=== PATIENT | female | born 1980 | race Two or more races ===

== ENCOUNTER 2021-01-21 18:11 | Emergency (ER) | payer SELFPAY ==
[~2021-01-21] VITALS: Ht 162.6 cm; Wt 72.0 kg
[2021-01-21] MEDS ORDERED: FAMOTIDINE 20 MG/2 ML VIAL IVP ONE (18:45)
[2021-01-21 19:04] LABS: BASO % 1 % (0-3); EOS % 0 % (0-3); HEMATOCRIT 38.6 % (36.0-47.0); HEMOGLOBIN 13.2 g/dL (12.0-15.5); LYMPH # 0.8 x10^3/uL (1.0-4.8); LYMPH % 19 % (24-48); MEAN CORPUSCULAR HEMOGLOBIN 32 pg (25-35); MEAN CORPUSCULAR HGB CONC 34 g/dL (31-37); MEAN CORPUSCULAR VOLUME 92 fL (79-100); MONO # 0.3 x10^3/uL (0.0-1.1); MONO % 7 % (0-9); NEUT # 2.9 x10^3/uL (1.8-7.7); NEUT % 73 % (31-73); PLATELET COUNT 251 x10^3/uL (140-400); RED BLOOD COUNT 4.19 x10^6/uL (3.50-5.40); RED CELL DISTRIBUTION WIDTH 12.7 % (11.5-14.5)
[2021-01-21 19:13] LABS: CALCIUM 8.7 mg/dL (8.5-10.1); CREATININE 0.6 mg/dL (0.6-1.0); GFR 111.3; POTASSIUM 3.5 mmol/L (3.5-5.1)
[2021-01-21 19:18] LABS: ALBUMIN 3.5 g/dL (3.4-5.0); ALBUMIN/GLOBULIN RATIO 0.8 (1.0-1.7); TOTAL BILIRUBIN 0.6 mg/dL (0.2-1.0); TOTAL PROTEIN 7.8 g/dL (6.4-8.2)
--- NOTE | 2021-01-21 19:43 | RAD ---
Exam: Chest one view INDICATION: Epigastric pain, Covid positive TECHNIQUE: Frontal view of the chest Comparisons: None FINDINGS: The cardiomediastinal silhouette and pulmonary vessels are within normal limits. Patchy bibasilar airspace disease. No pleural effusion. IMPRESSION: Patchy bilateral airspace disease. Infectious or inflammatory in etiology. Electronically signed by: Ashlie Wynne MD (01/21/2021 7:41 PM) [facility]
--- NOTE | 2021-01-21 19:44 | EKG ---
[facility] [address] [place] [address] Test Date: 2021-01-21 Test Time: 18:37:37 Pat Name: YULISSA GRAY Department: Room: Gender: F Computed Tomography Technician: : 1980 Requested By: KELSIE CAMARILLO Order Number: [id number] Reading MD: Measurements Intervals [place] Rate: 81 P: 0 UT: 156 QRS: 28 QRSD: 90 T: 0 QT: 376 QTc: 437 Interpretive Statements SINUS RHYTHM INCOMPLETE RIGHT BUNDLE BRANCH BLOCK QRS(T) CONTOUR ABNORMALITY CONSIDER ANTEROLATERAL MYOCARDIAL DAMAGE POSSIBLY ABNORMAL ECG RI6.01 No previous ECG available for comparison
--- NOTE | 2021-01-21 19:58 | PHYS DOC ---
Past Medical History Past Medical History: No Pertinent History (KELSIE CAMARILLO REVENUE TAX SPECIALIST) Past Surgical History: No Surgical History ([facility] [employer] T[facility] SPECIAL[facility]) Smoking Status: Never Smoker Alcohol Use: None (KELSIE CAMARILLO REVENUE TAX SPECIALIST) General Adult EDM: Chief Complaint: FLU SYMPTOM HPI: HPI: Patient is a 40 year old female who presents with pelvic positive for the last week. She is very drowsy but easily awakened. Patient states she has epigastric pain but also states that she has chest pain but points to her epigastric area. Abdomen is soft but tender epigastric area. Skin pink warm and dry. ([facility] REVENUE TAX SPECIALIST) Review of Systems: Review of Systems: Constitutional: Denies fever or chills. [] Eyes: Denies change in visual acuity. [] HENT: Denies nasal congestion or sore throat. [] Respiratory: Denies cough or shortness of breath. [] Cardiovascular: Denies chest pain or edema. [] GI: Denies abdominal pain, nausea, vomiting, bloody stools or diarrhea. [] : Denies dysuria. [] Musculoskeletal: Denies back pain or joint pain. [] Integument: Denies rash. [] Neurologic: Denies headache, focal weakness or sensory changes. [] Endocrine: Denies polyuria or polydipsia. [] Lymphatic: Denies swollen glands. [] Psychiatric: Denies depression or anxiety. [] (KELSIE CAMARILLO REVENUE TAX SPECIALIST) Heart Score: C/O Chest Pain: Yes HEART Score for Chest Pain: HEART Score for Chest Pain Response (Comments) Value History Slighlty/Non-Suspicious 0 ECG Nonspecific Repolarizatio 1 Age < 45 0 Risk Factors No Risk Factors 0 Troponin < Normal Limit 0 Total 1 Risk Factors: Risk Factors: DM, Current or recent (<one month) smoker, HTN, HLP, family history of CAD, obesity. Risk Scores: Score 0 - 3: 2.5% MACE over next 6 weeks - Discharge Home Score 4 - 6: 20.3% MACE over next 6 weeks - Admit for Clinical Observation Score 7 - 10: 72.7% MACE over next 6 weeks - Early Invasive Strategies (KELSIE CAMARILLO REVENUE TAX SPECIALIST) Current Medications: Current Medications Medications (Trade) Dose Ordered Sig/Nandini Start Time Stop Time Status Last Admin Dose Admin Famotidine (Pepcid Vial) 20 mg 1X ONCE 01/21/21 18:45 01/21/21 18:48 DC (KELSIE CAMARILLO APRN) Allergies: Allergies: Allergies Coded Allergies Type Severity Reaction Last Updated Verified No Known Drug Allergies 01/21/21 No (KELSIE CAMARILLO APRN) Physical Exam: PE: Constitutional: Well developed, well nourished, no acute distress, non-toxic ap pearance. [] HENT: Normocephalic, atraumatic, bilateral external ears normal, oropharynx moist, no oral exudates, nose normal. [] Eyes: PERRLA, EOMI, conjunctiva normal, no discharge. [] Neck: Normal range of motion, no tenderness, supple, no stridor. [] Cardiovascular:Heart rate regular rhythm, no murmur [] Lungs & Thorax: Bilateral breath sounds clear to auscultation [] Abdomen: Bowel sounds normal, soft, no tenderness, no masses, no pulsatile masses. [] Skin: Warm, dry, no erythema, no rash. [] Back: No tenderness, no CVA tenderness. [] Extremities: No tenderness, no cyanosis, no clubbing, ROM intact, no edema. [] Neurologic: Alert and oriented X 3, normal motor function, normal sensory function, no focal deficits noted. [] Psychologic: Affect normal, judgement normal, mood normal. [] (KELSIE CAMARILLO APRN) Current Patient Data: Labs: Laboratory Tests Test 01/21/21 18:35 White Blood Count 4.0 x10^3/uL (4.0-11.0) Red Blood Count 4.19 x10^6/uL (3.50-5.40) Hemoglobin 13.2 g/dL (12.0-15.5) Hematocrit 38.6 % (36.0-47.0) Mean Corpuscular Volume 92 fL (79-100) Mean Corpuscular Hemoglobin 32 pg (25-35) Mean Corpuscular Hemoglobin Concent 34 g/dL (31-37) Red Cell Distribution Width 12.7 % (11.5-14.5) Platelet Count 251 x10^3/uL (140-400) Neutrophils (%) (Auto) 73 % (31-73) Lymphocytes (%) (Auto) 19 % (24-48) L Monocytes (%) (Auto) 7 % (0-9) Eosinophils (%) (Auto) 0 % (0-3) Basophils (%) (Auto) 1 % (0-3) Neutrophils # (Auto) 2.9 x10^3/uL (1.8-7.7) Lymphocytes # (Auto) 0.8 x10^3/uL (1.0-4.8) L Monocytes # (Auto) 0.3 x10^3/uL (0.0-1.1) Eosinophils # (Auto) 0.0 x10^3/uL (0.0-0.7) Basophils # (Auto) 0.0 x10^3/uL (0.0-0.2) Sodium Level 139 mmol/L (136-145) Potassium Level 3.5 mmol/L (3.5-5.1) Chloride Level 103 mmol/L (98-107) Carbon Dioxide Level 27 mmol/L (21-32) Anion Gap 9 (6-14) Blood Urea Nitrogen 8 mg/dL (7-20) Creatinine 0.6 mg/dL (0.6-1.0) Estimated GFR (Cockcroft-Gault) 111.3 BUN/Creatinine Ratio 13 (6-20) Glucose Level 119 mg/dL (70-99) H Calcium Level 8.7 mg/dL (8.5-10.1) Total Bilirubin 0.6 mg/dL (0.2-1.0) Aspartate Amino Transferase (AST) 393 U/L (15-37) H Alanine Aminotransferase (ALT) 321 U/L (14-59) H Alkaline Phosphatase 76 U/L (46-116) Total Protein 7.8 g/dL (6.4-8.2) Albumin 3.5 g/dL (3.4-5.0) Albumin/Globulin Ratio 0.8 (1.0-1.7) L Lipase 98 U/L (73-393) Laboratory Tests 01/21/21 18:35 Laboratory Tests 01/21/21 18:35 Vital Signs: Vital Signs Date Time Temp Pulse Resp B/P (MAP) Pulse Ox O2 Delivery O2 Flow Rate FiO2 01/21/21 18:17 98.8 82 12 106/67 (80) 93 Room Air 98.8 (BAFUS,KELSIE M REVENUE TAX SPECIALIST) EKG: EK and read by Dr. Sutton sinus rhythm and no STEMI. (KELSIE CAMARILLO APRN) Radiology/Procedures: Radiology/Procedures: [] Impression: [facility] [address] [place] [address] IMAGING REPORT Signed PATIENT: YULISSA GRAY ACCOUNT: [id number] : 1980 LOCATION: ER AGE: 40 SEX: F EXAM STATUS: REG ER ORD. PHYSICIAN: KELSIE CAMARILLO APRN REASON: epigastric pain, covid + PROCEDURE: PORTABLE CHEST 1V Exam: Chest one view INDICATION: Epigastric pain, Covid positive TECHNIQUE: Frontal view of the chest Comparisons: None FINDINGS: The cardiomediastinal silhouette and pulmonary vessels are within normal limits. Patchy bibasilar airspace disease. No pleural effusion. IMPRESSION: Patchy bilateral airspace disease. Infectious or inflammatory in etiology. Electronically signed by: Ashlie Moore MD (01/21/2021 7:41 PM) [facility] DICTATED and SIGNED BY: ASHLIE MOORE MD DATE: 01/21/21 [id number] [facility] [address] [place] [address] IMAGING REPORT Signed PATIENT: YULISSA GRAY ACCOUNT: [id number] : 1980 LOCATION: ER AGE: 40 SEX: F EXAM STATUS: REG ER ORD. PHYSICIAN: KELSIE CAMARILLO APRN REASON: nausea, pain and tenderness, epigastric pain, OMNI 300, 75 ML IV COVID+ PROCEDURE: CT ABD PELV W/ IV CONTRST ONLY Exam: CT of abdomen and pelvis with contrast INDICATION: Nausea, pain and tenderness, epigastric pain TECHNIQUE: Sequential axial images through the abdomen and pelvis obtained following the administration of 75 mL of Omni 300 IV contrast. Sagittal and coronal reformatted images were reconstructed from the axial data and reviewed. Exposure: One or more of the following in the visualized dose reduction techniques were utilized for this examination: 1. Automated exposure control 2. Adjustment of the MA and/or KV according to patient size 3. Use of iterative of reconstructive technique Comparisons: None FINDINGS: Heart size is normal. No pericardial effusion. Patchy bibasilar airspace disease. No pleural effusion. Liver, spleen, pancreas and adrenals are unremarkable. Gallbladder is mildly dilated. Kidneys demonstrate symmetric enhancement. No renal or ureteral calculi. Bladder is decompressed not well evaluated. Uterus is nonenlarged. No abnormal adnexal mass. Large and small bowel are unremarkable. Appendix is nonidentified. No free intra-abdominal air or fluid. No obstruction. Abdominal aorta has a normal course caliber. Abdominal vasculature is patent. No enlarged intra-abdominal lymph nodes are identified. No suspicious osseous lesions or acute fractures. IMPRESSION: 1. Gallbladder is mildly distended. Correlate with symptomatology to determine the need for further evaluation with ultrasound 2. Patchy bibasilar airspace disease may be infectious or inflammatory in etiology. Electronically signed by: Ashlie Moore MD (01/21/2021 9:43 PM) [facility] DICTATED and SIGNED BY: ASHLIE MOORE MD DATE: 01/21/21 [id number] [facility] [address] [place], [place] [id number] IMAGING REPORT Signed PATIENT: YULISSA GRAY ACCOUNT: [id number] : 1980 LOCATION: ER AGE: 40 SEX: F EXAM STATUS: REG ER ORD. PHYSICIAN: KELSIE CAMARILLO APRN REASON: ABDNORMAL GALLBALDDER ON CT, PAIN PROCEDURE: ABDOMEN LTD Exam: Ultrasound abdomen limited Indication: Right upper quadrant pain Technique: Real-time grayscale and color Doppler images of the right upper quadrant were obtained by the department naprapath. Comparisons: CT same day FINDINGS: Liver contour is normal. Hepatopedal flow noted in the portal vein. Gallbladder is distended. No pericholecystic fluid or wall thickening. Common bile duct measures 5 mm in diameter. No gallstones. Right kidney measures 12.6 cm in length. No hydronephrosis. Visual is portions aorta and IVC are unremarkable. IMPRESSION: 1. Distended gallbladder without secondary evidence for acute cholecystitis. 2. Normal sonographic appearance the liver. 3. No right-sided hydronephrosis. Electronically signed by: Ashlie Moore MD (01/21/2021 10:44 PM) [facility] DICTATED and SIGNED BY: ASHLIE MOORE MD DATE: 01/21/21 [id number] (KELSIE CAMARILLO APRN) Course & Med Decision Making: Course & Med Decision Making Pertinent Labs and Imaging studies reviewed. (See chart for details) See HPI. Patient states that she is very drowsy but has epigastric and some chest pain. She states that she is coughing a little bit. She denies vomiting, dizziness, headache, shortness of breath, diarrhea, constipation, focal weakness, vision change, numbness or tingling. Abdomen is soft but tender at epigastric area. Lungs are clear in upper lobes but diminished in lower lobes. Skin pink warm and dry. She is only 93% on room air. X-ray shows patchy airspace disease. Lab work shows elevated LFTs. [] (KELSIE CAMARILLO APRN) Course & Med Decision Making The chart was reviewed. MLP assessed and treated patient independently I was available for consult.. Agree with the plan of care. (ALVINA SUTTON I DO) Corina Disclaimer: Corina Disclaimer: This electronic medical record was generated, in whole or in part, using a voice recognition dictation system. (KELSIE CAMARILLO APRN) Departure Departure Impression: Primary Impression: Pneumonia Qualified Codes: J18.9 - Pneumonia, unspecified organism Additional Impression: Epigastric pain Disposition: HOME / SELF CARE / HOMELESS Condition: STABLE Referrals: NO PCP (PCP) Patient Instructions: Pneumonia, Adult Additional Instructions: Follow-up with your primary care provider soon as possible. Drink plenty fluids. Take medication as prescribed and with food. Rest. Scripts Albuterol Sulfate (PROAIR HFA INHALER) 8.5 Gm Hfa.aer.ad 1 PUFF INH PRN Q6HRS PRN for SHORTNESS OF BREATH, #1 EACH 0 Refills Prov: KELSIE CAMARILLO APRN 01/21/21 Methylprednisolone (MEDROL) 4 Mg Tab.ds.pk 1 PKG PO UD, #1 PKG Prov: KELSIE CAMARILLO APRN 01/21/21 Azithromycin (AZITHROMYCIN TABLET) 250 Mg Tablet 1 PKG PO UD for 5 Days, #6 TAB 0 Refills 2 the first day followed by 1 for days 2-5 Prov: KELSIE CAMARILLO APRN 01/21/21 Ondansetron (ONDANSETRON ODT) 4 Mg Tab.rapdis 1 TAB PO PRN Q6-8HRS, #16 TAB Prov: KELSIE CAMARILLO APRN 01/21/21 KELSIE CAMARILLO APRN January 21, 2021 19:58 ALVINA SUTTON DO January 24, 2021 06:07
[2021-01-21] MEDS ORDERED: AZITHRMYCN 500MG IVPB FOR OMNI 250 ML IV ONE (20:00)
[2021-01-21] MEDS ORDERED: IV NORMAL SALINE 1000ML BAG 1,000 ML IV ONE (20:00)
[2021-01-21] MEDS ORDERED: IOHEXOL 300 MG/ML 100ML VIAL. IV ONE (20:00)
[2021-01-21] MEDS ORDERED: fentaNYL PF VIAL 100 MCG/2 ML VIAL IVP ONE (20:00)
[2021-01-21] MEDS ORDERED: CONTRAST GIVEN. MC PRN (20:15)
[2021-01-21 21:04] LABS: BILIRUBIN,URINE NEGATIVE (NEG); COLOR,URINE YELLOW; NITRITE,URINE NEGATIVE (NEG); PH,URINE 6.5 (<5.0-8.0); PROTEIN,URINE NEGATIVE (NEG-TRACE)
[2021-01-21 21:08] LABS: CLARITY,URINE HAZY
[2021-01-21 21:10] LABS: BACTERIA,URINE MODERATE /HPF (0-FEW); RBC,URINE 0 /HPF (0-2)
--- NOTE | 2021-01-21 21:46 | RAD ---
Exam: CT of abdomen and pelvis with contrast INDICATION: Nausea, pain and tenderness, epigastric pain TECHNIQUE: Sequential axial images through the abdomen and pelvis obtained following the administrati on of 75 mL of Omni 300 IV contrast. Sagittal and coronal reformatted images were reconstructed from the axial data and reviewed. Exposure: One or more of the following in the visualized dose reduction techniques were utilized for this examination: 1. Automated exposure control 2. Adjustment of the MA and/or KV according to patient size 3. Use of iterative of reconstructive technique Comparisons: None FINDINGS: Heart size is normal. No pericardial effusion. Patchy bibasilar airspace disease. No pleural effusion . Liver, spleen, pancreas and adrenals are unremarkable. Gallbladder is mildly dilated. Kidneys demonstrate symmetric enhancement. No renal or ureteral calculi. Bladder is decompressed not well evaluated. Uterus is nonenlarged. No abnormal adnexal mass. Large and small bowel are unremarkable. Appendix is nonidentified. No free intra-abdominal air or flu id. No obstruction. Abdominal aorta has a normal course caliber. Abdominal vasculature is patent. No enlarged intra-abdominal lymph nodes are identified. No suspicious osseous lesions or acute fractures. IMPRESSION: 1. Gallbladder is mildly distended. Correlate with symptomatology to determine the need for further evaluation with ultrasound 2. Patchy bibasilar airspace disease may be infectious or inflammatory in etiology. Electronically signed by: Ashlie Wynne MD (01/21/2021 9:43 PM) [facility]
[2021-01-21 22:18] VITALS: BP 121/72
--- NOTE | 2021-01-21 22:46 | RAD ---
Exam: Ultrasound abdomen limited Indication: Right upper quadrant pain Technique: Real-time grayscale and color Doppler images of the right upper quadrant were obtained by the department tube fitter. Comparisons: CT same day FINDINGS: Liver contour is normal. Hepatopedal flow noted in the portal vein. Gallbladder is distended. No pericholecystic fluid or wall thickening. Common bile duct measures 5 mm in diameter. No gallstones. Right kidney measures 12.6 cm in length. No hydronephrosis. Visual is portions aorta and IVC are unremarkable. IMPRESSION: 1. Distended gallbladder without secondary evidence for acute cholecystitis. 2. Normal sonographic appearance the liver. 3. No right-sided hydronephrosis. Electronically signed by: Ashlie Wynne MD (01/21/2021 10:44 PM) AJAY
[2021-01-21] MEDS ORDERED: ALBU2.5V8 INH (22:58)
[2021-01-21] MEDS ORDERED: METH4TAB2 PO (22:58)
[2021-01-21] MEDS ORDERED: ONDA4TAB12 PO (22:58)
[2021-01-21] MEDS ORDERED: AZIT250T6 PO (22:58)
--- NOTE | 2021-01-21 23:15 | EKG ---
[facility] [address] [place] [address] Test Date: 2021-01-21 Test Time: 18:38:56 Pat Name: YULISSA GRAY Department: Room: Gender: F Right Of Way Supervisor: : 1980 Requested By: KELSIE CAMARILLO Order Number: [id number] Reading MD: Measurements Intervals [place] Rate: 81 P: 0 PA: 158 QRS: 27 QRSD: 90 T: 0 QT: 376 QTc: 442 Interpretive Statements SINUS RHYTHM INCOMPLETE RIGHT BUNDLE BRANCH BLOCK OTHERWISE NORMAL ECG RI6.01 Compared to ECG 01/21/2021 18:37:37 No significant changes
--- NOTE | 2021-01-21 23:23 | EKG ---
[facility] [address] [place] [address] Test Date: 2021-01-21 Test Time: 18:56:11 Pat Name: YULISSA GRAY Department: Room: Gender: F Senior Net Web Developer: : 1980 Requested By: KELSIE CAMARILLO Order Number: [id number] Reading MD: Measurements Intervals [place] Rate: 103 P: 90 NE: 188 QRS: 65 QRSD: 70 T: -58 QT: 312 QTc: 411 Interpretive Statements SINUS TACHYCARDIA ATRIAL PREMATURE COMPLEX(ES) ST & T ABNORMALITY, CONSIDER ANTEROLATERAL ISCHEMIA OR LEFT VENTRICULAR STRAIN INFEROLATERAL ISCHEMIA OR LEFT VENTRICULAR STRAIN ABNORMAL ECG RI6.01 Compared to ECG 01/21/2021 18:38:56 T-wave abnormality now present Possible ischemia now present Sinus rhythm no longer present Incomplete right bundle-branch block no longer present
== END 2021-01-21 23:45 | disposition home or self-care (01) ==
LOC: ER 18:11
DX: J18.9 Pneumonia, unspecified organism (principal); R10.13 Epigastric pain
CPT/HCPCS: 36415; 71045; 74177; 76705; 80053; 81001; 81025; 83690; 85025; 87086; 93005; 96365; 96375; 99285; J0456; J3010; J3490; J7030; Q9967